=== PATIENT | male | born 1940 | race Caucasian/White ===

== ENCOUNTER 2017-12-11 13:26 | Emergency (ER) | payer MEDICARE ==
--- NOTE | 2017-12-11 13:55 | ED Physician Chart ---
ED Chief Complaint/HPI - Patient Information Date Seen:: 12/11/17 Time Seen:: 13:49 Chief Complaint:: Fatigue and chills History of Present Illness:: 77 yo male had fatigue and chills for one month after 3 Zometa IV infusions on , 10/14/17 and 11/06/17. The symptoms of fatigue and chills lasted only for 2 days after first and second Zometa infusions. 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 S/p thyroidectomy in Aug 2011 and radical neck dissection in October 2013 for recurred thyroid cancer. L4 metastasis was noticed in February 2016, right hip metastasis in Aug 2017. Patient had G-tube where he receives tube feed. Patient last saw his oncologist Dr. Ball 3 weeks ago. 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 Allergies:: Allergies Allergy/AdvReac Type Severity Reaction Status Date / Time amoxicillin Allergy Verified 12/11/17 13:47 ED Review of Systems - Review of Systems General/Constitutional: Chills, Weakness Skin: No bruising Head: No headache Eyes: No pain ENT: No earache Neck: Neck pain Cardio Vascular: No chest pain Pulmonary: SOB GI: Nausea, Vomiting, No diarrhea, No pain, Other (G-tube) Musculoskeletal: Bone or joint pain (right hip pain ) ED Past Medical History - Past Medical History Past Medical History: Thyroid disorder (Papillary thyroid cancer), Other (Afib) Social History: Non Smoker (former), No Alcohol (former), No Drug Use Surgical History: other (Thyroidectomy, radical neck dissection) ED Physical Exam - Physical Examination General/Constitutional: Awake Eyes: PERRL ENMT: Nasal exam nl Neck: No nuchal rigidity Respiratory: Clear to Auscultation Cardio Vascular: RRR, No murmur, gallop, rubs, NL S1 S2 GI: No tenderness/rebounding/guarding Other GI comments:: G-tube intact Extremities: normal strength in all extremities Other Extremities comments:: Painful ROM of right hip Neuro/Psych: No focal deficits ED Assessment - Assessment General Assessment: Leukopenia Papillary thyroid carcinoma with metastasis Assessment/Comments:: CBC, CMP, UA Trop I, amylase, lipase NS 1L IV bolus Levaquin 750mg IV D/c home Levaquin 750mg PO x 7 days F/u PCP and oncologist ED Septic Shock - . Is Septic Shock (SBP<90, OR Lactate>4 mmol\L) present?: No ED Reassessment (Disposition) - Reassessment Reassessment Condition:: Improved - Patient Disposition Discharge/Transfer:: Home ED Discharge Plan - Patient Disposition Admit/Discharge/Transfer: PT DISCHARGED HOME Condition at Disposition: Improved Instructions: White Blood Cell Count Test
[2017-12-11 14:43] LABS: % BASOPHILS 0.1 % (0.0-2.0); % LYMPHOCYTES 12.8 % (20.0-50.0); % MONOCYTES 14.8 % (2.0-10.0); % NEUTROPHILS 66.3 % (40.0-80.0); EOSINOPHILE ABSOLUTE 0.2 Th/cmm (0.1-0.4); HEMATOCRIT 32.3 % (41.0-60); HEMOGLOBIN 10.7 gm/dL (12-16); LYMPHOCYTE ABSOLUTE 0.3 Th/cmm (1.5-3.0); MEAN CELL VOLUME 87.4 fl (80-99); MEAN CORPUSCULAR HEMOGLOBIN 28.9 pg (27.0-31.0); MEAN PLATELET VOLUME 7.7 fl; MONOCYTE ABSOLUTE 0.4 Th/cmm (0.3-1.0); NEUTROPHILE ABSOLUTE 1.8 Th/cmm (1.8-8.0); PLATELET COUNT 206 Th/cmm (150-400); RED CELL DISTRIBUTION WIDTH 13.2 % (11.5-20.0)
[2017-12-11 14:45] LABS: WHITE BLOOD COUNT 2.7 Th/cmm (4.8-10.8)
[2017-12-11 14:50] LABS: URINE MICROSCOPIC INDICATED? YES; URINE SOURCE RANDOM
[2017-12-11 14:53] LABS: ALB/GLOB RATIO 1.2 (1.0-1.8); ALBUMIN 3.1 gm/dL (4.2-5.5); ALKALINE PHOSPHATASE 69 U/L (34-104); ANION GAP 9.9 (7.0-16.0); BILIRUBIN,TOTAL 0.4 mg/dL (0.3-1.0); BUN - UREA NITROGEN 25 mg/dL (7-25); CALCIUM SERUM 8.6 mg/dL (8.6-10.3); CHLORIDE 104 mEq/L (98-107); CREATININE - SERUM 0.7 mg/dL (0.7-1.3); GLUCOSE 107 mg/dL (70-105); POTASSIUM SERUM 3.9 mEq/L (3.5-5.1); SGOT 22 U/L (13-39); SGPT/ALT 18 U/L (7-52); SODIUM SERUM 136 mEq/L (136-145); TOTAL PROTEIN,SERUM 5.8 gm/dL (6.0-8.3)
[2017-12-11 14:54] LABS: URINE BILIRUBIN NEGATIVE (NEGATIVE); URINE BLOOD NEGATIVE (NEGATIVE); URINE GLUCOSE (UA) NEGATIVE (NEGATIVE); URINE KETONE NEGATIVE (NEGATIVE); URINE LEUKOCYTE ESTERASE NEGATIVE (NEGATIVE); URINE NITRATE NEGATIVE (NEGATIVE); URINE PH 7.5 (4.6 - 8.0); URINE PROTEIN NEGATIVE (NEGATIVE); URINE UROBILINOGEN 0.2 E.U./dL (0.2 - 1.0)
[2017-12-11 15:13] LABS: URINE CLARITY CLEAR (CLEAR); URINE COLOR YELLOW
[2017-12-11 15:14] LABS: URINE BACTERIA NONE SEEN /hpf (NONE SEEN); URINE EPITHELIAL CELLS OCCASIONAL /lpf (FEW); URINE RBC 0-2 /hpf (0-5); URINE WBC 0-2 /hpf (0-5)
[2017-12-11] MEDS ORDERED: Sodium Chloride 0.9% 1,000 ML IV ONE (16:02)
[2017-12-11] MEDS ORDERED: Levofloxacin 750mg/150mL 750 MG/150 ML BAG IV ONE ×2 (16:08→16:18)
[2017-12-11 16:17] LABS: AMYLASE SERUM 28 U/L (29-103); LIPASE 24 U/L (11-82)
--- NOTE | 2017-12-12 09:18 | Diagnostic Imaging Report ---
Portable chest x-ray Time: 1434 hours History: Shortness of breath Allowing for portable technique the heart size is normal. No focal pulmonary parenchymal processes. No hilar or mediastinal abnormalities. COPD changes are noted Impression: No acute abnormalities. COPD changes.
== END 2017-12-11 18:40 | disposition home or self-care (01) ==
LOC: ER 13:26
DX: C73 Malignant neoplasm of thyroid gland (principal); D72.819 Decreased white blood cell count, unspecified; Z88.1 Allergy status to other antibiotic agents
CPT/HCPCS: 99285; 96365; 93005; 71045; 84484; 83880; 36415; 83605; 84443; 85025; 81001; 82150; 83615; 83690; 80053; 87040; J1956; J7030